=== PATIENT | female | born 1985 | race Caucasian/White ===

== ENCOUNTER 2017-05-04 20:37 | Emergency (ER) | payer SELFPAY ==
[~2017-05-04] VITALS: Ht 167.6 cm; Wt 72.1 kg
[2017-05-04 20:37] VITALS: BP_SYST 131
[2017-05-04] MEDS ORDERED: methylPREDNISolone SOD SUCC/PF 62.5 MG/ML VIAL IM ONE (22:00)
[2017-05-04] MEDS ORDERED: AZITHROMYCIN 250 MG TABLET PO ONE (22:00)
[2017-05-04] MEDS ORDERED: IPRATROPIUM/ALBUTEROL SULFATE 3 ML AMPUL.NEB INH ONE (22:00)
[2017-05-04 22:35] VITALS: BP_SYST 133
== END 2017-05-04 22:35 | disposition home or self-care (01) ==
LOC: SED 20:37
DX: J06.9 Acute upper respiratory infection, unspecified (principal); F17.200 Nicotine dependence, unspecified, uncomplicated; Z71.6 Tobacco abuse counseling
CPT/HCPCS: 94640; 96372; 99283; J2930; Q0144

== ENCOUNTER 2023-07-15 23:53 | Emergency (ER) | payer MEDICAID ==
[~2023-07-15] VITALS: Ht 167.6 cm; Wt 68.9 kg
[2023-07-15 23:58] VITALS: BP_SYST 136; PULSE 90; RESP 20; TEMP 99.1; O2SAT 100
[2023-07-16] MEDS ORDERED: CIPR7.5D OT (00:25)
== END 2023-07-16 00:37 | disposition home or self-care (01) ==
LOC: SED 23:53
DX: H60.93 Unspecified otitis externa, bilateral (principal); Z79.899 Other long term (current) drug therapy
CPT/HCPCS: 99283